=== PATIENT | female | born 1960 | race Caucasian/White ===

== ENCOUNTER 2016-07-02 04:39 | Emergency (ER) | payer BC ==
[2016-07-02] MEDS ORDERED: SODIUM CHLORIDE 0.9% 1,000 ML ONE (06:00)
[2016-07-02] MEDS ORDERED: METOCLOPRAMIDE 10 MG/2 ML VIAL ONE (06:15)
[2016-07-02] MEDS ORDERED: DIPHENHYDRAMINE 50 MG/ML VIAL ONE (06:15)
[2016-07-02] MEDS ORDERED: KETOROLAC 30 MG/ML VIAL ONE (06:15)
== END 2016-07-02 07:40 | disposition home or self-care (01) ==
LOC: ER 04:39
DX: I10 Essential (primary) hypertension (principal); G44.40 Drug-induced headache, not elsewhere classified, not intractable; T50.995A Adverse effect of other drugs, medicaments and biological substances, initial encounter; Z79.899 Other long term (current) drug therapy; F17.210 Nicotine dependence, cigarettes, uncomplicated
CPT/HCPCS: 36415; 70450; 80048; 85025; 85610; 85652; 85730; 96361; 96374; 96375